=== PATIENT | female | born 1950 | race Caucasian/White ===

== ENCOUNTER → 2016-04-12 | Outpatient (CLI) | payer BC ==
[~2016-04-12] MED LIST: ASPEC81 PO; ASPI81TA28 PO; CALC500C70 PO; CIPR-255 PO; CLON0.5T3 PO; HYDR-5688 PO; MULT-506 PO; OMEG10007 PO; SERT-234 PO
--- NOTE | 2016-04-12 13:20 | DIAGNOSTIC IMAGING REPORT ---
FLUOROSCOPICALLY GUIDED RIGHT SHOULDER ARTHROGRAPHIC INJECTION PRE-CT CLINICAL HISTORY: Right shoulder pain. Possible rotator cuff tear. COMPARISON STUDY: Conventional radiographic study dated 11/01/2015 FLUOROSCOPY TIME: 24 seconds. A single fluoroscopic spot image was acquired. FINDINGS: A timeout was performed. The risks of the procedure and spleen the patient informed consent was obtained. Patient was prepped and draped in sterile fashion. The skin was anesthetized 1% lidocaine. Under fluoroscopic guidance, a 22-gauge spinal needle was introduced the joint capsule. Optiray 300 was instilled into the joint space. A fluoroscopic spot image was obtained to document intra-articular location of the contrast. There were no complications. The patient sensed the CT suite for further evaluation. IMPRESSION: Successful right shoulder arthrogram pre-CT. Electronically signed by: Coy Mojica M.D. 04/12/2016 1:18 PM Dictated Date/Time: 04/12/2016 1:16 PM
--- NOTE | 2016-04-12 13:24 | DIAGNOSTIC IMAGING REPORT ---
POST ARTHROGRAM CT SCAN OF THE RIGHT SHOULDER CT DOSE: 390.22 mGy.cm CLINICAL HISTORY: Right shoulder pain. Possible rotator cuff tear. TECHNIQUE: Helical images were acquired in the transverse plane. Sagittal and coronal reformatted imaging was acquired. COMPARISON STUDY: Conventional radiographic study dated 11/01/2015 FINDINGS: There is no evidence of bicipital tendon dislocation. There are moderate osteoarthritic changes with cartilaginous thinning. No acute fractures or dislocations are visualized. There is contrast within the subacromial space as well as within the substance of the supraspinous tendon. There is a full-thickness tear at the level of the tendinous footplate. There is no tendinous retraction. No labral tears are visualized. IMPRESSION: Full-thickness rotator cuff tear. No evidence of tendinous retraction. Electronically signed by: Coy Mojica M.D. 04/12/2016 1:22 PM Dictated Date/Time: 04/12/2016 1:18 PM
== END | disposition home or self-care (01) ==
LOC: C.CTS 11:50
PROVIDERS: ATTEND Orthopaedic Surgery
DX: M75.101 Unspecified rotator cuff tear or rupture of right shoulder, not specified as traumatic (principal)

== ENCOUNTER → 2016-07-25 | Outpatient (CLI) | payer BC ==
--- NOTE | 2016-07-25 21:06 | DIAGNOSTIC IMAGING REPORT ---
RIGHT ANKLE MIN 3 VIEWS ROUTINE CLINICAL HISTORY: Right foot and ankle pain following injury. COMPARISON: None FINDINGS: Alignment of the right ankle is anatomic. No acute fracture is identified. There is minimal plantar calcaneal spurring. There is mild soft tissue swelling. IMPRESSION: No acute fracture or dislocation of the right ankle. Electronically signed by: Wayne Leal M.D. 07/25/2016 9:04 PM Dictated Date/Time: 07/25/2016 9:03 PM
--- NOTE | 2016-07-25 21:07 | DIAGNOSTIC IMAGING REPORT ---
RIGHT FOOT MIN 3 VIEWS ROUTINE CLINICAL HISTORY: Right foot and ankle pain following injury. COMPARISON: None FINDINGS: The tarsometatarsal joints are intact. There is mild hallux valgus deformity. No acute fracture is identified. Deformity of the proximal phalanx of the right fifth toe suggests an old fracture. There is minimal plantar calcaneal spurring. Minimal degenerative changes are noted within several articulations of the right foot. IMPRESSION: No acute fracture or dislocation of the right foot. Electronically signed by: Wayne Leal M.D. 07/25/2016 9:06 PM Dictated Date/Time: 07/25/2016 9:04 PM
== END | disposition home or self-care (01) ==
LOC: C.RAD 20:41
PROVIDERS: ATTEND Physician Assistant Surgical
DX: S99.921A Unspecified injury of right foot, initial encounter (principal); S99.911A Unspecified injury of right ankle, initial encounter; M79.671 Pain in right foot; X58.XXXA Exposure to other specified factors, initial encounter

== ENCOUNTER 2016-08-28 16:39 | Emergency (ER) | payer BC ==
[~2016-08-28] VITALS: Ht 167.6 cm; Wt 76.1 kg
[~2016-08-28 16:39] MED LIST changes: -ASPI81TA28 PO; -HYDR-5688 PO
[2016-08-28 16:47] VITALS: BP 118/74; TEMP 36.6; Ht 167.6 cm; Wt 76.1 kg
[2016-08-28] MEDS ORDERED: ASPI81TA28 PO (17:23)
--- NOTE | 2016-08-28 18:05 | DIAGNOSTIC IMAGING REPORT ---
RIGHT PELVIS/UNILATERAL HIP 2-3VIEWS CLINICAL HISTORY: Fall, right hip pain Right COMPARISON: None. DISCUSSION: The bones and joint spaces appear intact. There is no evidence of fracture, dislocation or bony disease. There is no evidence for soft tissue swelling. IMPRESSION: Negative study. Minimal degenerative change. Electronically signed by: Luis Melendez M.D. 08/28/2016 6:03 PM Dictated Date/Time: 08/28/2016 6:02 PM
--- NOTE | 2016-08-28 18:07 | DIAGNOSTIC IMAGING REPORT ---
RIGHT RIBS UNILATERAL WITH PA CHEST CLINICAL HISTORY: Right rib pain s/p fall Right COMPARISON STUDY: None FINDINGS: Negative right ribs. Negative chest. IMPRESSION: No acute process. Electronically signed by: Luis Melendez M.D. 08/28/2016 6:05 PM Dictated Date/Time: 08/28/2016 6:04 PM
[2016-08-28] MEDS ORDERED: HYDR-5688 PO (18:24)
--- NOTE | 2016-08-28 18:26 | EMERGENCY ROOM VISIT NOTE ---
History First contact with patient: 17:12 Chief Complaint: FALL Stated Complaint: FELL, PAIN RT LOWER HIP/BUTT, RT RIB AREA, RT LEG History of Present Illness The patient is a 65 year old female who presents to the Emergency Room via private vehicle with complaints of "fall, pain right lower hip/buttock, right rib area, right leg". The patient states that this evening around 3 PM, she fell down one step at her neighbor's house. She states that she fell onto her right side/back. At this time she notes pain in the right lateral rib region as well as the right hip. She rates her pain as an 8/10. She states that when she takes a deep breath it hurts on the right side of the rib cage. She denies any left-sided pain. She also notes that the pain in the right hip is mostly in the buttock region. She states this is her fourth fall in the past few months. She denies any head injury, headache, loss of consciousness. Review of Systems A complete 6-point Review of Systems was discussed with the patient, with pertinent positives and negatives listed in the History of Present Illness. All remaining Review of Systems questions can be considered negative unless otherwise specified. 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, tumor, hearing loss Family History High blood pressure, cancer, Alzheimer's Social History Smoking Status: Never Smoker Marital Status: single Housing Status: lives alone Occupation Status: retired Current/Historical Medications Scheduled Aspirin (Aspirin Ec), 81 MG PO DAILY Calcium/Vitamin D (Os-Tremaine 500 Plus D), 1 TAB PO DAILY Fish Oil ([place]-3), 1 CAP PO BID Multivitamin (Multivitamin), 1 TAB PO DAILY Sertraline (Zoloft), 100 MG PO DAILY Scheduled PRN Hydrocodone/Acetaminophen 5MG/325MG (Carmen 5MG/325MG), 1-2 TABLET PO Q6 PRN for Pain Allergies Coded Allergies: Codeine (Unverified Allergy, Mild, 08/28/16) Morphine (Verified Allergy, Unknown, GET REALLY SICK, 08/28/16) Physical Exam Vital Signs Date Time Temp Pulse Resp B/P (MAP) Pulse Ox O2 Delivery O2 Flow Rate FiO2 08/28/16 18:45 88 18 97 08/28/16 16:47 36.6 70 18 118/74 94 Room Air Physical Exam VITAL SIGNS - Vital signs and nursing notes were reviewed. Patient is afebrile , normotensive, non-tachycardic and is saturating on room air 94%. GENERAL -65-year-old female appearing her stated age who is in no acute distress. Communicates well with provider and answers questions appropriately. SKIN - Without rashes. The skin is intact. HEAD - NC/AT. EYES - PERRL with EOMI bilaterally. Sclera anicteric. Palpebral conjunctiva pink and moist with no injection noted. EARS - No deformities of external structures noted on gross examination bilaterally. NECK - Neck with FROM. No C-spine tenderness. Supple to palpation. No thoracic or lumbar tenderness. LUNGS - Chest wall symmetric without accessory muscle use, intercostals retractions, or central cyanosis. Normal vesicular breath sounds CTA B/L. No wheezes, rales, or rhonchi appreciated. CARDIAC - RRR with S1/S2. No murmur, rubs, or gallops appreciated. ABDOMEN - Abdominal contour without pulsations or visible masses. BS normoactive all four quadrants. No tenderness, palpable masses, hepatosplenomegaly, or ascites noted. MUSCULOSKEKETAL: There is tenderness to palpation overlying the right lateral rib cage, worse with inspiration. There is also tenderness to palpation overlying the right gluteal region. No true hip tenderness. Full range of motion noted to the extremities. EXTREMITIES - No clubbing or peripheral cyanosis. No pretibial edema present.+5/ 5 strength noted in UE/LE bilaterally. NEUROLOGIC - Cranial nerves II through XII grossly intact. Sensory intact to light touch throughout. PSYCH - A&O Pt is very pleasant and interacts well with examiner. Medical Decision & Procedures ER Provider Diagnostic Interpretation: RIGHT PELVIS/UNILATERAL HIP 2-3VIEWS CLINICAL HISTORY: Fall, right hip pain Right COMPARISON: None. DISCUSSION: The bones and joint spaces appear intact. There is no evidence of fracture, dislocation or bony disease. There is no evidence for soft tissue swelling. IMPRESSION: Negative study. Minimal degenerative change. Electronically signed by: Luis Melendez M.D. 08/28/2016 6:03 PM Dictated Date/Time: 08/28/2016 6:02 PM RIGHT RIBS UNILATERAL WITH PA CHEST CLINICAL HISTORY: Right rib pain s/p fall Right COMPARISON STUDY: None FINDINGS: Negative right ribs. Negative chest. IMPRESSION: No acute process. Electronically signed by: Luis Melendez M.D. 08/28/2016 6:05 PM Dictated Date/Time: 08/28/2016 6:04 PM Medical Decision Patient was seen and evaluated as above. She appears to present to us today status post mechanical fall. She has had a history of falls over the past few months, and he called her family doctor today to schedule follow-up regarding today's injury. They informed her that they could not see her until Friday, but director to the emergency Department for imaging and note they will follow up her recent falls on Friday. This sounds reasonable. Radiographs were obtained with results as above. No acute fracture. I suspect the patient has bruised ribs on the right side, as well as a right gluteal region. 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 No evidence of stroke, TIA or emergent process at this time. I discussed the workup such as a head CT at this time, however it sounds as though her follow-up with her family doctor on Friday will encompass her recent fall and etiology. I believe this is reasonable at this time to allow her to be discharged with close follow-up with the family doctor. She'll be given a short term supply of pain medication. This was chosen based upon pain medication she had received in the past. This was verified prior to prescribing this to the patient by verbally discussed the medication she be prescribed. She was given an incentive spirometer to help prevent pneumonia. She is to follow-up with family doctor on Friday. She was educated upon worrisome symptoms which to return, had questions prior to discharge, and was discharged home. In the evaluation and treatment of this patient, the following differential diagnoses were considered: Hip Fracture, Hip Dislocation, Greater Trochanteric Bursitis, Musculoskeletal Pain, Lumbar Radiculopathy, TIA, stroke, rib fracture , contusion, among others. [place] Drug Monitoring Program Search Results: patient reviewed within database, no issues identified Impression Primary Impression: Fall Additional Impression: Contusion of multiple sites Departure Information Dispostion Home / Self-Care Condition GOOD Prescriptions Hydrocodone/Acetaminophen 5MG/325MG (Carmen 5MG/325MG) Tab 1-2 TABLET PO Q6 Y for Pain, #15 TAB For Initial Treatment Prov: Pako ArechigaLORENZO 08/28/16 Referrals Luis Dc M.D. (PCP) Patient Instructions My [facility] Additional Instructions You have been treated in the Emergency Department for Rib pain and hip pain. You have been prescribed NORCO to be used for pain control. This is a narcotic medication. You cannot drive or consume alcohol while on this medicine. This medicine should only be used for pain that cannot be controlled with over-the- counter pain medicines. PLEASE DO NOT TAKE WITH TYLENOL IT ALREADY CONTAINS THIS MEDICATION. For pain control, you can use the following ahsq-jno-kmkqlgz medicines (if >12 yo): -Regular strength (325mg/tab) Tylenol (acetaminophen) 2 tabs every 4-6 hours as needed. Do not exceed 12 tablets in a 24 hour period. Avoid taking more than 3 grams (3000 mg) of Tylenol per day. This includes any other sources of acetaminophen you may take on a regular basis. - Regular strength (200 mg/tab) Advil (ibuprofen) 1-2 tabs every 4-6 hours as needed. Do not exceed a dose of 3200 mg per day. If this is an acute injury, ice can be applied to the area of pain for the first 3 days to help decrease pain and inflammation. After the first 3 days, a heating pad can be used over the area for continued soothing relief. To minimize your discomfort, you can hug a pillow while coughing or sneezing. Additionally, you should continue to force yourself to take nice, deep breaths. Full expansion of the lungs is necessary to prevent the accumulation of fluid in the lung tissue and development of pneumonia. You should schedule a follow-up appointment in 2-3 days with your Primary Care Provider for further evaluation and treatment of your back pain. Please use the Incentive Spirometer several times per hour while awake to help prevent the development of pneumonia. Return to the Emergency Department if your current symptoms worsen despite treatment course outlined above, or if you develop any of the following symptoms : intractable pain despite aforementioned treatment course, development of a wet cough, bloody cough, fever, chills, or increased shortness of breath. Please return to the emergency department with any new/concerning symptoms. Problem Qualifiers
[2016-08-28 18:45] VITALS: PULSE 88; O2SAT 97
== END 2016-08-28 18:47 | disposition home or self-care (01) ==
LOC: C.EDB 16:40 → C.EDD 18:47
DX: T14.8 Other injury of unspecified body region (principal); W10.9XXA Fall (on) (from) unspecified stairs and steps, initial encounter; Y92.89 Other specified places as the place of occurrence of the external cause; Z82.49 Family history of ischemic heart disease and other diseases of the circulatory system; Z80.9 Family history of malignant neoplasm, unspecified; Z79.82 Long term (current) use of aspirin; Z79.899 Other long term (current) drug therapy

== ENCOUNTER → 2016-10-16 | Outpatient (CLI) | payer OTHER ==
[~2016-10-16] MED LIST changes: -ASPEC81 PO; +ASPI81TA28 PO; -CIPR-255 PO; -CLON0.5T3 PO; +HYDR-5688 PO
--- NOTE | 2016-10-16 13:42 | MAMMOGRAPHY REPORT ---
BILATERAL DIGITAL SCREENING MAMMOGRAM TOMOSYNTHESIS WITH CAD: 10/16/2016 CLINICAL HISTORY: Routine screening. Patient has no complaints. TECHNIQUE: Breast tomosynthesis in addition to standard 2D mammography was performed. Current study was also evaluated with a Computer Aided Detection (CAD) system. COMPARISON: Comparison is made to exams dated: 10/11/2015 mammogram, 10/05/2014 mammogram, 09/29/2013 m ammogram, 09/23/2012 mammogram, 09/24/2011 ultrasound, and 09/24/2011 mammogram - [facility]. BREAST COMPOSITION: There are scattered areas of fibroglandular density in both breasts. FINDINGS: There is expected architectural distortion in the upper outer posterior left breast, at th e site of prior surgical excision of a phyllodes. There are stable benign rim and round microcalcifi cations in both breasts. No new suspicious mass, architectural distortion or cluster of microcalcific ations is seen. IMPRESSION: ACR BI-RADS CATEGORY 1: NEGATIVE There is no mammographic evidence of malignancy. A 1 year screening mammogram is recommended. The pa tient will receive written notification of the results. Approximately 10% of breast cancers are not detected with mammography. A negative mammographic report should not delay biopsy if a clinically suggestive mass is present. Corina Salgado M.D. ay/:10/16/2016 10:42:47 Supervisor [employer]: Jaqueline FUNEZ)(Kb), [facility] letter sent: Normal 1/2 BI-RADS Code: ACR BI-RADS Category 1: Negative
== END | disposition home or self-care (01) ==
LOC: C.MAMM 09:50
PROVIDERS: ATTEND Nurse Practitioner Adult Health
DX: Z12.31 Encounter for screening mammogram for malignant neoplasm of breast (principal)

== ENCOUNTER 2022-03-04 09:56 | Observation (INO) ==
--- NOTE | 2022-01-24 15:37 | PAT Medication Instructions ---
Medication Instructions Date of Service January 24, 2022 Home Medications alendronate 70 mg tablet 70 mg PO Q7D sertraline 100 mg tablet 100 mg PO HS Bifidobacterium infantis 4 mg capsule (Align) 4 mg PO QAM calcium 600 mg capsule 600 mg PO QAM cholecalciferol (vitamin D3) 25 mcg (1,000 unit) tablet (Vitamin D3) 25 mcg PO QAM cyclosporine 0.05 % eye drops in a dropperette (Restasis) 1 drp ophthalmic (eye) Q12H zxefpqbc-hmj-vpox-FA-Ca carb-vit K 18 mg iron-400 mcg-500 mg tablet (One-A-Day Womens Formula) 1 tab PO QAM artificial tears with lanolin eye ointment 1 applic ophthalmic (eye) HS biotin 1,000 mcg chewable tablet 1,000 mcg PO QAM carboxymethylcellulose sodium 1 % eye liquid gel drops 2 drp ophthalmic (eye) BID PRN diphenhydramine 25 mg-acetaminophen 500 mg tablet (Tylenol PM Extra Strength) 1 tab PO HS PRN Continue as directed alendronate 70 mg tablet 70 mg PO Q7D (do NOT take day of surgery) STOP taking 2 weeks before surgery biotin 1,000 mcg chewable tablet 1,000 mcg PO QAM DO NOT take the morning of surgery restbnpq-tri-kfve-FA-Ca carb-vit K 18 mg iron-400 mcg-500 mg tablet (One-A-Day Womens Formula) 1 tab PO QAM Bifidobacterium infantis 4 mg capsule (Align) 4 mg PO QAM calcium 600 mg capsule 600 mg PO QAM cholecalciferol (vitamin D3) 25 mcg (1,000 unit) tablet (Vitamin D3) 25 mcg PO QAM Take morning of surgery With a small sip of water, OTHERWISE NOTHING TO EAT OR DRINK AFTER MIDNIGHT: carboxymethylcellulose sodium 1 % eye liquid gel drops 2 drp ophthalmic (eye) BID PRN(if needed) cyclosporine 0.05 % eye drops in a dropperette (Restasis) 1 drp ophthalmic (eye) Q12H Take evening before surgery diphenhydramine 25 mg-acetaminophen 500 mg tablet (Tylenol PM Extra Strength) 1 tab PO HS PRN(if needed) carboxymethylcellulose sodium 1 % eye liquid gel drops 2 drp ophthalmic (eye) BID PRN(if needed) artificial tears with lanolin eye ointment 1 applic ophthalmic (eye) HS cyclosporine 0.05 % eye drops in a dropperette (Restasis) 1 drp ophthalmic (eye) Q12H sertraline 100 mg tablet 100 mg PO HS Other Notes If you have any questions please call us at [phone] or [phone] or [phone] or [phone]
--- NOTE | 2022-01-28 10:00 | Anesthesiology Consultation ---
Date of Service January 28, 2022 Assessment & Plan (1) Encounter for pre-operative examination: - COVID screening: Per assessment on 01/28: No known COVID-19 positive contacts or current COVID-19 related symptoms. Travel screen negative. Patient vaccinated. At surgeon discretion if preop Covid testing being done. - Outpatient joint assessment: Pt currently scheduled for inpatient pathway. If surgeon requests review for outpatient joint pathway, patient is not recommended candidate for outpatient joint program from anesthesia standpoint. - S/P Right eye PE with IOL (06/06/21): LMA#4 at [facility]. No issues noted per post- op anesthesia progress note. - Deaf: Does not sign, reads lips. OR made aware. Spoke with Gamal with OR- she states they will have clear masks stocked/ready for patient's DOS per patient request. Chart Review Chart Review: Acceptable Risk for Surgery and Patient seen in Pre Admission Testing Teaching & Discussion Pre-Anesthesia Teaching/Discussion Notes: Instructed NPO after midnight before surgery,except medications with 15 cc of water. Medication instructions provided according to the PAT guidelines. History Surgery Operation Date: 03/04/22 07:00 Proposed Procedures p Left Reverse Total Shoulder Arthroplasty - Jorge Alfonso, Height/Weight Height: 5 ft 6 in Weight: 78 kg Allergies Allergy/AdvReac Type Severity Reaction Status Date / Time codeine Allergy Mild Nausea Verified 01/23/22 15:21 morphine Allergy Mild Nausea Verified 01/23/22 15:21 grass pollen Allergy Unknown Unknown Verified 01/23/22 15:21 pollen extracts Allergy Unknown Unknown Verified 01/23/22 15:21 ragweed pollen Allergy Unknown Unknown Verified 01/23/22 15:21 shellfish derived Allergy Unknown Unknown Verified 01/23/22 15:21 Medications Home Medications Medication Instructions Recorded Confirmed Last Taken alendronate 70 mg tablet 70 mg PO Q7D 01/06/19 01/23/22 06/03/21 sertraline 100 mg tablet 100 mg PO HS 01/06/19 01/23/22 06/05/21 Bifidobacterium infantis 4 mg 4 mg PO QAM 05/07/21 01/23/22 06/05/21 capsule (Align) calcium 600 mg capsule 600 mg PO QAM 05/07/21 01/23/22 06/05/21 cholecalciferol (vitamin D3) 25 25 mcg PO QAM 05/07/21 01/23/22 06/05/21 mcg (1,000 unit) tablet (Vitamin D3) cyclosporine 0.05 % eye drops in a 1 drp ophthalmic (eye) Q12H 05/07/21 01/23/22 06/06/21 dropperette (Restasis) wtzhbxtt-qpi-sbfw-FA-Ca carb-vit K 1 tab PO QAM 05/07/21 01/23/22 06/05/21 18 mg iron-400 mcg-500 mg tablet (One-A-Day Womens Formula) artificial tears with lanolin eye 1 applic ophthalmic (eye) HS 01/23/22 01/23/22 Unknown ointment biotin 1,000 mcg chewable tablet 1,000 mcg PO QAM 01/23/22 01/23/22 Unknown carboxymethylcellulose sodium 1 % 2 drp ophthalmic (eye) BID PRN Dry 01/23/22 01/23/22 Unknown eye liquid gel drops Eye(S) diphenhydramine 25 1 tab PO HS PRN Pain 01/23/22 01/23/22 Unknown mg-acetaminophen 500 mg tablet (Tylenol PM Extra Strength) Past Medical History Medical History Deafness Reads lips, does not sign 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 History of COVID-19 Dx 03/2020- rhinorrhea, resolved History of depression IBS (irritable bowel syndrome) Osteoporosis Exercise / Class Metabolic Activity III < 4 Walking/Shop/Light housework Past Family History Family History Mother Family history of reaction to anesthesia nausea/vomiting Other Cancer Hypertension No family history of bleeding disorder Stroke Past Surgical History Surgical History Family history of reaction to anesthesia Mother- "Got really sick" History of cochlear implant left History of colonoscopy History of ear surgery x2--on left ear--pt states that during one of her ear surgeries in 1987 they found a benign tumor on the brain and removed it at that time History of excision of pilonidal cyst History of left cataract surgery History of lumpectomy of left breast benign tumor removal History of surgery right pinky finger x2--no hardware History of surgery phyloid tumor excision 2009 History of wisdom tooth extraction Hx of right cataract extraction Right eye PE with IOL (06/06/21): LMA#4 at [facility]. No issues noted per post-op anesthesia progress note. Past Anesthesia History No Hx of Anesthesia Complications and No Family Hx of Anesthesia Complications (except mother- severe PONV) History of PONV No Hx of PONV and No Hx of Motion Sickness Social History Smoking Status: Never smoker Do You Dip or Chew Tobacco: No Hx Alcohol Use: Yes alcohol intake frequency: holidays/special occasions only Hx Substance Use: No substance use type: does not use Review of Systems Patient denies chest pain, shortness of breath, fever, chills, cough, wheezing, palpitations. Physical Exam Vital Signs VITALS BP 117/51 P 69 TEMP 98.6 SP02 96%RA RESP 18 PHYSICAL Full cervical extension range of motion. Full TMJ range of motion. TMD 3 finger breaths Mallampati Score 1 Dentition: intact Lungs: clear throughout to auscultation Cardiac: regular rate and rhythm, no murmurs noted Spine: normal Carotid arteries: negative bruit Extremities: no edema Lab Results Anesthesia Preop Results Results Anesthesia Widget: WBC 4.93 K/ul (4.8-10.8) 01/28/22 Hgb 15.4 g/dl (12.0-16.0) 01/28/22 Hct 45.9 % (34.1-44.9) H 01/28/22 Plt 255 K/uL (130-400) 01/28/22 Na 142 mmol/L (136-145) 01/28/22 K 4.1 mmol/L (3.5-5.1) 01/28/22 Cl 108 mmol/L (98-107) H 01/28/22 CO2 30 mmol/L (21-32) 01/28/22 BUN 21 mg/dl (6-23) 01/28/22 Creat 0.65 mg/dl (0.6-1.2) 01/28/22 Glucose Level 90 mg/dl (70-99(Fasting)) 01/28/22 PT 10.3 Seconds (9.0-12.0) 01/28/22 PTT 28.9 Seconds (21.0-31.0) 01/28/22 INR 1.0 (0.9-1.1) 01/28/22 Blood Type O Positive 01/28/22 Antibody Screen NEGATIVE 01/28/22 Testing Electrocardiogram Date: 05/03/21 Findings: + NSR @ (65) Chest X-Ray Date: 01/28/22 FINDINGS: No lines and tubes are seen. The cardiomediastinal silhouette is normal. The lungs are clear. No evidence of pleural effusion or pneumothorax. IMPRESSION: No acute chest disease. COVID-19 Risk Screen Screening Information COVID-19 Screen Date: 01/28/22 Exposure 21 Days Family/Household +COVID Last 21 Days: No Exposure 10 Days Any COVID Exposure Last 10 Days: No Symptoms Last 10 Days Experienced COVID Sx Last 10 Days: No + COVID 0-90 Days COVID + in Last 0-90 Days: No
--- NOTE | 2022-02-28 13:22 | History & Physical Report ---
Date of Service February 28, 2022 Assessment & Plan (1) Rotator cuff tear: We will proceed with a left reverse shoulder arthroplasty. Postoperatively she will be placed in a sling and kept overnight in the hospital for postoperative medical management. She plans to use [facility] upon discharge. History of Present Illness Chief Complaint: Rotator cuff tear left shoulder. Primary Care Provider: Luis Dc MD Urvashi is a pleasant 71-year-old female who has been dealing with chronic worsening left shoulder pain and weakness. A recent CT scan of the shoulder showed full-thickness retracted tears of the supraspinatus. There is also tearing of the infraspinatus. She is having trouble lifting her arm above chest level. Her symptoms have gotten worse over the years. We had tried multiple injections. She has a cochlear implant. So, she is unable to have an MRI. After failing extensive conservative treatment, she has elected to proceed with a left reverse shoulder arthroplasty. Allergies Allergy/AdvReac Type Severity Reaction Status Date / Time codeine Allergy Mild Nausea Verified 01/23/22 15:21 morphine Allergy Mild Nausea Verified 01/23/22 15:21 grass pollen Allergy Unknown Unknown Verified 01/23/22 15:21 pollen extracts Allergy Unknown Unknown Verified 01/23/22 15:21 ragweed pollen Allergy Unknown Unknown Verified 01/23/22 15:21 shellfish derived Allergy Unknown Unknown Verified 01/23/22 15:21 Home Medications Medication Instructions Recorded Confirmed Type alendronate 70 mg tablet 70 mg PO Q7D 01/06/19 01/23/22 History sertraline 100 mg tablet 100 mg PO HS 01/06/19 01/23/22 History Bifidobacterium infantis 4 mg 4 mg PO QAM 05/07/21 01/23/22 History capsule (Align) calcium 600 mg capsule 600 mg PO QAM 05/07/21 01/23/22 History cholecalciferol (vitamin D3) 25 25 mcg PO QAM 05/07/21 01/23/22 History mcg (1,000 unit) tablet (Vitamin D3) cyclosporine 0.05 % eye drops in a 1 drp ophthalmic (eye) Q12H 05/07/21 01/23/22 History dropperette (Restasis) [id number]-Ca carb-vit K 1 tab PO QAM 05/07/21 01/23/22 History 18 mg iron-400 mcg-500 mg tablet (One-A-Day Womens Formula) artificial tears with lanolin eye 1 applic ophthalmic (eye) HS 01/23/22 01/23/22 History ointment biotin 1,000 mcg chewable tablet 1,000 mcg PO QAM 01/23/22 01/23/22 History carboxymethylcellulose sodium 1 % 2 drp ophthalmic (eye) BID PRN Dry 01/23/22 01/23/22 History eye liquid gel drops Eye(S) diphenhydramine 25 1 tab PO HS PRN Pain 01/23/22 01/23/22 History mg-acetaminophen 500 mg tablet (Tylenol PM Extra Strength) Past Med/Surg History Medical History Deafness Reads lips, does not sign 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 History of COVID-19 Dx 03/2020- rhinorrhea, resolved History of depression IBS (irritable bowel syndrome) Osteoporosis Surgical History Family history of reaction to anesthesia Mother- "Got really sick" History of cochlear implant left History of colonoscopy History of ear surgery x2--on left ear--pt states that during one of her ear surgeries in 1987 they found a benign tumor on the brain and removed it at that time History of excision of pilonidal cyst History of left cataract surgery History of lumpectomy of left breast benign tumor removal History of surgery right pinky finger x2--no hardware History of surgery phyloid tumor excision 2009 History of wisdom tooth extraction Hx of right cataract extraction Right eye PE with IOL (06/06/21): LMA#4 at [facility]. No issues noted per post-op anesthesia progress note. Family History Mother Family history of reaction to anesthesia nausea/vomiting Other Cancer Hypertension No family history of bleeding disorder Stroke Social History Smoking Status: Never smoker Second Hand Exposure: Yes (as a child); Hx Alcohol Use: Yes Hx Substance Use: No Preferred Language: Yi Communication Ability: Impaired Director Visual Required: No Beliefs That Will Affect Care: None Current Living Situation: Alone Feels Safe at Home: Yes Assistive Devices: Glasses and Other Review of Systems All systems reviewed & are unremarkable except as noted in HPI & below. Physical Exam On physical examination of the left shoulder, she has about 45 degrees of forward elevation 45 degrees of abduction. She has 4 out of 5 motion with the full can test and external rotation.. Constitutional WD/WN, vitals as above Eyes PERRL, conjunctivae normal, anicteric sclerae ENMT external ear and nose normal, oropharynx normal Neck trachea midline, no thyromegaly Respiratory normal respiratory effort, lungs clear to auscultation Cardiovascular RRR, no murmur, no edema Gastrointestinal (Abdomen) normal bowel sounds, soft, nontender, no hepatosplenomegaly Skin no rashes, warm and dry Psychiatric A+Ox3, euthymic affect Results & Data Results & Data Laboratory Results . Diagnostic Findings CT scan of the left shoulder shows a large chronic retracted rotator cuff tear of the supraspinatus and part of the infraspinatus. X-rays of the left shoulder show a little bit of superior migration of the humeral head of the glenoid and no significant arthritis.. PG Care Time/CCT Total # of Minutes Spent Total Time Spent with Patient: Total time spent is greater than 50% in coordination of care (as documented) at patient's floor/unit and/or counseling patient: Coding Level of Care Code None Diagnoses Rotator cuff tear M75.100
[~2022-03-04 09:56] MED LIST changes: +ACETAMINOPHEN 500 MG TAB PO SCH; -ASPI81TA28 PO; +BUPIVACAINE 0.5 % 5 MG/1 ML PF 10ML VIAL ONE; -CALC500C70 PO; +FAMOTIDINE 20 MG TAB PO SCH; +GABAPENTIN 300 MG CAP PO SCH; -HYDR-5688 PO; +Ketorolac (*for OR use only*) 30 MG, dexAMETHasone 4 MG, KETAMINE HCL (**OR use only) 1... INFIL SCH; +LR 15ML/HR IV SCH; +LR 60ML/HR IV SCH; -MULT-506 PO; -OMEG10007 PO; -SERT-234 PO; +TRANEXAMIC ACID 1,000 MG **IV Intra-op IV SCH; +TRANEXAMIC ACID 1,000 MG **IV Pre-op IV SCH; +ceFAZolin 2000MG 2,000 MG/15 ML SYR IV SCH; +dexAMETHasone 4 MG TAB PO SCH
--- NOTE | 2022-03-04 10:34 | History & Physical Bridge Note ---
Date of Service March 04, 2022 History & Physical Bridge Note I have examined the patient, reviewed the History & Physical and in the interval since the performance of the History & Physical I have noted the following changes of clinical significance: no changes noted
[2022-03-04] MEDS ORDERED: LIDOCAINE 2% MPF LOCAL 5 ML VIAL INFIL ONE (11:34)
[2022-03-04] MEDS ORDERED: MIDAZOLAM HCL 1 MG/ML 2ML VIAL ONE (11:34)
[2022-03-04] MEDS ORDERED: DEXAMETHASONE SOD INJ 4 MG/ML VIAL ONE (11:34)
[2022-03-04] MEDS ORDERED: fentaNYL citrate 100 MCG/2 ML VIAL ONE (11:34)
[2022-03-04] MEDS ORDERED: ONDANSETRON INJ 2 MG/ML 2 ML VIAL ONE (11:34)
[2022-03-04] MEDS ORDERED: PROPOFOL IV EMULSION 10 MG/ML 20 ML VIAL IV ONE (11:34)
[2022-03-04] MEDS ORDERED: ROCURONIUM BROMIDE 10 MG/ML 5 ML VIAL IV ONE (11:34)
[2022-03-04] MEDS ORDERED: fentaNYL citrate 100 MCG/2 ML VIAL IV PRN (12:24)
[2022-03-04] MEDS ORDERED: ATROPINE SULFATE 0.1 MG/ML 10ML SYR IV PRN (12:24)
[2022-03-04] MEDS ORDERED: ePHEDrine sulfate 50 MG/ML AMP IV PRN (12:24)
[2022-03-04] MEDS ORDERED: ONDANSETRON INJ 2 MG/ML 2 ML VIAL IV PRN ×2 (12:24→17:58)
[2022-03-04] MEDS ORDERED: ORTHO JOINT ANESTHETIC ONE (13:44)
[2022-03-04] MEDS ORDERED: PHENYLEPHRINE HCL 10 MG/ML VIAL ONE (13:56)
[2022-03-04] MEDS ORDERED: GLYCOPYRROLATE 0.2 MG/ML VIAL ONE (14:19)
[2022-03-04] MEDS ORDERED: NEOSTIGMINE METHYLSULFATE 1 MG/ML 10ML VIAL ONE (14:19)
[2022-03-04] MEDS ORDERED: SODIUM CHLORIDE 0.9% INJ 10 ML VIAL ONE (14:19)
[2022-03-04] MEDS ORDERED: ePHEDrine sulfate 50 MG/ML AMP ONE (14:19)
--- NOTE | 2022-03-04 14:27 | Operative Report ---
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 of the long head of the biceps tendon I identified the patient and participated in the time-out.: Yes Procedure Operation Date: 03/04/22 12:30 Actual Procedures p Left Reverse Total Shoulder Arthroplasty(Left) with open biceps tenodesis as a distinct and separate procedure (modifier 59)- Jorge Alfonso DO Surgeon Jorge Alfonso DO Curb Setter Helper Jorge Chen PA-C Estimated Blood Loss 250 Findings Consistent with Post-Op Diagnosis Specimens Left humeral head Description of Procedure A CPT code modifier 59: The long head of the biceps tendon was enlarged and inflamed consistent with tendinopathy. A tenodesis was opted. This was a separate and distinct portion of the procedure. For these reasons, a CPT code modifier 59 will be added to this case. Implants used: I used a [employer]omet Comprehensive reverse total shoulder arthroplasty system with a size 9 press fit micro humeral stem, a +6 offset humeral tray and a standard humeral bearing, a 25 mm medium augment baseplate with a 6.5 mm central screw and superior and inferior locking screws, and a size 36 mm eccentric glenosphere. Urvashi arrived at [facility] for the above procedure. She was seen in the preoperative holding area and the operative extremity was identified and signed. She was given a preoperative antibiotic, TXA, and an interscalene nerve block. She was taken back to the operating room, laid on table in supine position, and put under general anesthesia. She was then put into the beachchair position. The shoulder was then prepped and draped in sterile fashion. A timeout was done and the patient and the operative extremity was properly identified. A deltopectoral approach was used. Dissection was taken down through the fascia and the deltoid was retracted laterally and the conjoined tendon was retracted medially. The anterior shoulder was exposed. The biceps groove was opened up and the biceps tendon was examined extensively. The biceps tendon demonstrated enlargement and inflammatory changes consistent with longstanding inflammation in the context of osteoarthritis and cuff arthropathy. The long head of the biceps tendon was then tenodesed to the upper border of the pectoralis major. This was a separate and distinct portion of the procedure. The subscapularis was then directly released off the lesser tuberosity with a peel technique. The inferior capsule was released and the humeral head was dislocated. A canal finding reamer was sent down the center of the humeral canal. Sequential reaming up to a size 9 reamer was done. Off that reamer, a proximal humeral resection guide was placed. The proximal humerus was resected at 135 of inclination and 25 of retroversion. Osteophytes were then removed and the glenoid was exposed. Time was spent doing a complete capsular and labral relea se. The glenoid guide was then placed in the inferior aspect of the glenoid. A 3.2 mm Steinmann pin was then placed into the glenoid vault at 10 of inclination. The glenoid baseplate was then reamed. The final size 25 mm medium augment baseplate was then impacted in the place. A 6.5 mm central screw was then placed followed by superior and inferior locking screws. A 36 mm eccentric glenosphere was then impacted into place. Surrounding soft tissues were then injected with 100 cc an orthopedic pain control cocktail. The proximal humerus was then exposed. Sequential broaching of the humerus up to a size 9 broach was done. Off that broach a +6 offset humeral tray was trialed. The shoulder was then reduced, brought through a full range of motion, and felt to be stable. The shoulder was then dislocated and the broach was removed. The final size 9 micro press-fit humeral stem was then impacted into place. A standard humeral bearing was then snapped onto a +6 offset humeral tray. The humeral tray was then impacted onto the humeral stem. The shoulder was once again reduced, brought through a full range of motion, and felt to be stable. The subscapularis was significantly retracted and unable to be repaired. A dilute betadyne lavage was then done for 3 minutes. The joint was then irrigated with normal saline solution. Hemostasis was obtained. The interval was closed with 2-0 Vicryl suture. The skin was then closed with 2-0 Vicryl and drew. A Silverlon dressing was placed and the arm was rested in a regular arm sling. She was then extubated and transferred to a hospital bed. She taken to the postanesthesia care unit in stable condition. She tolerated the procedure well. Jorge Chen PA-C, was present for the entire procedure. He was critical for pat ient positioning, prepping, draping, retraction exposure, wound closure and application of sterile dressing. I attest to the content of the Intraoperative Record and any orders documented therein. Any exceptions are noted below.
[2022-03-04] MEDS ORDERED: ESMOLOL HCL INJ 10 MG/ML 10ML VIAL IV ONE (14:35)
--- NOTE | 2022-03-04 14:58 | Anesthesiology Progress Note ---
Date of Service March 04, 2022 Anesthesia Post Procedure Vital Signs Vital Signs: Temp Pulse Resp BP Pulse Ox O2 Del Method 03/04/22 10:35 36.7 C 67 20 136/84 98 Room Air Pain Intensity Left Shoulder: Pain Intensity: 6 Transfer of Care Handoff Completed per policy Notes Mental Status: alert / awake / arousable and participated in evaluation Patient Amnestic to Procedure: Yes Nausea / Vomiting: adequately controlled Pain: adequately controlled Airway Patency, RR, SpO2: stable & adequate BP & HR: stable & adequate Hydration State: stable & adequate Anesthetic Complications: no major complications apparent and Pt Satisfied with anesthetic care
--- NOTE | 2022-03-04 17:15 | XRay Report ---
XR shoulder LT min 2V routine CLINICAL HISTORY: Post shoulder surgery COMPARISON: Left shoulder CT arthrogram September 04, 2021. Left shoulder radiographs December 18, 2021. FINDINGS: Alignment of the reverse total left shoulder arthroplasty is anatomic. Note is made of a n ondisplaced periprosthetic fracture along the distal aspect of the humeral component. No additional f ractures are identified. There are skin drew. No unexpected radiopaque foreign bodies are present. Left basilar opacity favors atelectasis. IMPRESSION: 1. Status post reverse total left shoulder arthroplasty. Hardware intact. No unexpected radiopaque fo reign bodies. 2. Nondisplaced periprosthetic fracture along the distal aspect of the humeral component. This findin g will be called/faxed to the ordering provider at time of dictation. ACT 112: Negative or not required by law. Electronically signed by: Wayne Leal M.D. 03/04/2022 5:13 PM
[2022-03-04] MEDS ORDERED: NALOXONE HCL 0.4 MG/1 ML VIAL/CARP IV PRN (17:58)
[2022-03-04] MEDS ORDERED: METOCLOPRAMIDE HCL INJ 5 MG/ML 2 ML VIAL IV PRN (17:58)
[2022-03-04] MEDS ORDERED: MAGNESIUM HYDROXIDE SUSP 30 ML UDC PO PRN (17:58)
[2022-03-04] MEDS ORDERED: HYDROmorphone INJ 0.5 MG/0.5 ML SYR IV PRN (17:58)
[2022-03-04] MEDS ORDERED: bisacodyL 10 MG SUPP PR PRN (17:58)
[2022-03-04] MEDS ORDERED: oxyCODONE HCL IR 5 MG TAB (IMMEDIATE RELEASE) PO PRN (17:58)
[2022-03-04] MEDS: KETOROLAC TROMETHAMINE 15 MG/ML VIAL IV SCH (19:05)
[2022-03-04] MEDS: SODIUM CHLORIDE 0.9% 1000ML 1,000 ML IV SCH ×2 (19:06→22:04)
[2022-03-04] MEDS ORDERED: ARTIFICIAL TEARS OP OINT 3.5 GM TUBE OP SCH (21:00)
[2022-03-04] MEDS ORDERED: SERTRALINE HCL 100 MG TABLET PO SCH (21:00)
[2022-03-04] MEDS ORDERED: SENNA 8.6 MG TAB PO SCH (21:00)
[2022-03-04] MEDS: ceFAZolin 2000MG 2,000 MG/15 ML SYR IV SCH (22:05)
[2022-03-04] MEDS: ACETAMINOPHEN 500 MG TAB PO SCH (22:10)
[2022-03-04] MEDS: DOCUSATE SODIUM 100 MG CAP PO SCH (22:11)
[2022-03-05] MEDS: ORDER AWAITING ACTION: Cyclosporine [Restasis] 0.05 % Dropperette SCH ×2 (00:51→07:50)
[2022-03-05] MEDS: KETOROLAC TROMETHAMINE 15 MG/ML VIAL IV SCH ×3 (00:51→13:21)
[2022-03-05] MEDS: ceFAZolin 2000MG 2,000 MG/15 ML SYR IV SCH (03:55)
[2022-03-05] MEDS: ACETAMINOPHEN 500 MG TAB PO SCH ×2 (05:31→13:27)
--- NOTE | 2022-03-05 06:55 | Orthopedic Progress Note ---
Date of Service March 05, 2022 Assessment & Plan (1) Status post reverse total replacement of left shoulder: Overall she is doing fairly well. She is not any pain in the left shoulder. The nerve block is still in effect. She will be seen by physical therapy today for ambulation and range of motion exercises. She can be discharged home later today. Her sister will be coming to help her and she will have [facility] at her house. She will follow-up with orthopedics in 2 weeks. Su Landin was seen and examined at bedside this morning. Overall she is doing fairly well. She is not having any pain in the left shoulder. The nerve block is still in effect. She has no complaints.. Review of Systems All systems reviewed & are unremarkable except as noted in HPI & below. Physical Exam On physical examination of the left shoulder, the dressing is clean and dry. She is wearing her sling as instructed. The nerve block is still in effect and she has no motion of her hand or wrist.. Results & Data Results & Data Laboratory Results . Diagnostic Findings Postoperative x-rays of the left shoulder show the prosthesis to be in good alignment. There is a small crack at the tip of the humeral stem. It is a vertical crack it is nondisplaced and appears to be stable.. PG Care Time/CCT Total # of Minutes Spent Total Time Spent with Patient: Total time spent is greater than 50% in coordination of care (as documented) at patient's floor/unit and/or counseling patient: Coding Level of Care Code 43743 Post Operative Follow-Up Diagnoses Status post reverse total replacement of left shoulder Z96.612
--- NOTE | 2022-03-05 06:57 | Discharge Summary ---
Date of Service March 05, 2022 Admission HPI (Per Admitting) Urvashi is a pleasant 71-year-old female who has been dealing with chronic worsening left shoulder pain and weakness. A recent CT scan of the shoulder showed full-thickness retracted tears of the supraspinatus. There is also tearing of the infraspinatus. She is having trouble lifting her arm above chest level. Her symptoms have gotten worse over the years. We had tried multiple injections. She has a cochlear implant. So, she is unable to have an MRI. After failing extensive conservative treatment, she has elected to proceed with a left reverse shoulder arthroplasty. Admission Exam (Per Admitting) On physical examination of the left shoulder, she has about 45 degrees of forward elevation 45 degrees of abduction. She has 4 out of 5 motion with the full can test and external rotation.. Principal Diagnosis Same as "Discharge Diagnosis" noted below under Discharge Instructions. Discharge Exam On physical examination of the left shoulder, the dressing is clean and dry. She is wearing her sling as instructed. The nerve block is still in effect and she has no motion of her hand or wrist.. Discharge Data Procedures Performed Operation Date: 03/04/22 12:30 Actual Procedures p Left Reverse Total Shoulder Arthroplasty(Left) - Jorge Alfonso DO Ordered Studies 03/04/22 05:00 US - OR guided needle placemen Routine 03/04/22 13:45 US - OR guided needle placemen Routine Hospital Course (1) Status post reverse total replacement of left shoulder: On March 04, 2022 Urvashi arrived at [facility] and underwent a left reverse shoulder arthroplasty. Postoperatively she was placed in a sling and transferred to the general orthopedic floors. Her hospital course was uneventful. On postop day #1, her vital signs were stable and her pain was well controlled. She was able to participate well with physical therapy doing ambul ation and range of motion exercises. There is a small crack at the inferior portion of the humeral component. I spoke with the therapist and we will continue normal therapy but we will go a little bit film booker on the arm in the early postoperative period. She will follow-up with orthopedics in 2 weeks. PG Care Time/CCT Total # of Minutes Spent Total Time Spent with Patient: Total time spent is greater than 50% in coordination of care (as documented) at patient's floor/unit and/or counseling patient: Discharge Plan Discharge Items Patient Disposition: Home - Home Health Services Reason For Visit: Degenerative Joint Disease Left Shoulder Discharge Diagnosis: Left reverse shoulder replacement Activity: Per Instructions section Non-emergency contact: Surgeon Call non-emergency contact if: your wound has increased redness and your wound has increased drainage Follow-up/Referrals: Luis Dc MD [Primary Care Provider] - Diet: Regular Addtl Attending Provider Instructions: Activity and Therapy Recommendations: * If you are using [facility] then therapy will be provided at your home until they feel you have accomplished all of your goals. * If you are using [facility] then Physical Therapy will be provided until they feel you are ready to start Outpatient Physical Therapy. * If you are not using home therapy then Outpatient Physical Therapy should start about 3-5 days from your day of surgery. Therapy will last about 8-12 weeks * Wear your sling for 3 weeks, unless otherwise instructed. You may remove your sling to shower and to dress, but otherwise, you should be in your sling at all times, including while sleeping * The shoulder replacement is very stable and you can use your hand while in the sling * You were shown a series of exercises in the hospital. Do these exercises daily including the exercises you were shown in physical therapy. Medications: * Narcotic You will likely be sent home from the hospital with a prescription for the narcotic pain medication that worked best throughout your stay. * Other medications may be prescribed for specific circumstances. If you have any questions, please call the office at . * Resume previous home medications unless otherwise instructed Dressing Care: Leave the Silverlon dressing in place for 7 days. After 7 days you may remove the dressing. If the incision is not draining then you may leave the drew open to air. If there is a little bit of drainage or if the drew are getting stuck on your clothing then cover the incision with a dry dressing. The drew will be removed at your 2 week follow-up appointment. Showering: You may shower with the Silverlon dressing in place. Do not let the shower spray hit the dressing directly. Pat the Silverlon dressing dry. If the dressing becomes wet underneath, then simply remove the dressing. Keep the incision dry until you are 7 days out from the day of surgery. After 7 days you may remove the Silverlon dressing and shower with the drew exposed. Let soapy water run over the drew and pat them dry. Do not scrub or soak the incision. Things To Watch For: * Drainage from the incision site that occurs more than one week after your surgery. * Increased redness at the incision site. * Fever above 102 degrees Fahrenheit. * Unusual chest pain or shortness of breath. * Call [facility] at with any of the above problems Follow-Up Visit: Follow-up with Dr. Alfonso's PA (Jorge Chen) 2-3 weeks after your day of surgery. He will remove your drew and answer any questions. If you have any additional questions or concerns, Dr Alfonso is usually in the office at the same time and will be available An appointment was probably scheduled when you signed-up for surgery in the office. If you have any questions call More detailed instructions as well as Frequently Asked Questions were provided in a folder by our office when you signed-up for surgery. Please review these instructions when you get home. If you have any further questions or concerns, please feel free to call the office at [phone] Pending Studies at Discharge: No Stand-Alone Forms: My [facility] Medications and DC Order Prescriptions: New tramadol 50 mg tablet 50 mg PO Q6H PRN (Reason: pain) Qty: 30 0RF Continued alendronate [Fosamax] 70 mg tablet 70 mg PO Q7D Label Comments: takes on sundays sertraline 100 mg tablet 100 mg PO HS cyclosporine [Restasis] 0.05 % Dropperette 1 drp OPHTHALMIC (EYE) Q12H calcium 600 mg Capsule 600 mg PO QAM cholecalciferol (vitamin D3) [Vitamin D3] 25 mcg (1,000 unit) Tablet 25 mcg PO QAM Align 4 mg Capsule 4 mg PO QAM One-A-Day Womens Formula 18 mg iron-400 mcg-500 mg Tablet 1 tab PO QAM diphenhydramine-acetaminophen [Tylenol PM Extra Strength] 25-500 mg Tablet 1 tab PO HS PRN (Reason: Pain) carboxymethylcellulose sodium [Refresh Liquigel] 1 % Drops, Liquid Gel 2 drp OPHTHALMIC (EYE) BID PRN (Reason: Dry Eye(S)) Lacri-Lube S.O.P. Ointment 1 applic OPHTHALMIC (EYE) HS biotin 1,000 mcg Tablet,Chewable 1,000 mcg PO QAM Discharge Orders: Discharge Order (Routine); Ordered 03/05/22 Ordered By: Jorge Alfonso Admission Data Admit Date/Time: 03/04/22 14:41 Attending Provider: Jorge Alfonso Admit Provider: Jorge Alfnoso Primary Care Provider: Luis cD
[2022-03-05] MEDS ORDERED: dexAMETHasone 4 MG TAB PO SCH (08:00)
[2022-03-05] MEDS ORDERED: MULTIVITAMIN TAB PO SCH (09:00)
[2022-03-05] MEDS: DOCUSATE SODIUM 100 MG CAP PO SCH (10:31)
[2022-03-05] MEDS ORDERED: ONDANSETRON 4 MG OD TAB PO STA (13:16)
[2022-03-10] MEDS ORDERED: ALENDRONATE SODIUM 70 MG TAB PO SCH (09:00)
== END 2022-03-05 13:38 | disposition home health service (06) ==
LOC: ASU 09:56 → PACUINP 09:56 → 3W 17:53

== ENCOUNTER 2024-08-30 06:48 | Observation (INO) ==
--- NOTE | 2024-07-28 11:40 | PAT Medication Instructions ---
Medication Instructions Date of Service July 28, 2024 Home Medications alendronate 70 mg tablet (Fosamax) 70 mg PO WK sertraline 100 mg tablet 150 mg PO HS calcium 600 mg capsule 600 mg PO QAM cholecalciferol (vitamin D3) 25 mcg (1,000 unit) tablet (Vitamin D3) 25 mcg PO QAM cyclosporine 0.05 % eye drops in a dropperette (Restasis) 1 drp ophthalmic (eye) BID artificial tears with lanolin eye ointment 1 applic ophthalmic (eye) HS carboxymethylcellulose sodium 1 % eye liquid gel drops (Refresh Liquigel) 2 drp ophthalmic (eye) UD PRN Dry Eye(S) diphenhydramine 25 mg-acetaminophen 500 mg tablet (Tylenol PM Extra Strength) 1 tab PO UD PRN Pain/sleep amoxicillin 500 mg tablet 2,000 mg PO UD PRN pre dental MEDICATION INSTRUCTIONS: Continue as directed amoxicillin 500 mg tablet 2,000 mg PO UD PRN pre dental alendronate 70 mg tablet (Fosamax) 70 mg PO WK cyclosporine 0.05 % eye drops in a dropperette (Restasis) 1 drp ophthalmic (eye) BID artificial tears with lanolin eye ointment 1 applic ophthalmic (eye) HS carboxymethylcellulose sodium 1 % eye liquid gel drops (Refresh Liquigel) 2 drp ophthalmic (eye) UD PRN Dry Eye(S) DO NOT take the morning of surgery calcium 600 mg capsule 600 mg PO QAM cholecalciferol (vitamin D3) 25 mcg (1,000 unit) tablet (Vitamin D3) 25 mcg PO QAM Take evening before surgery sertraline 100 mg tablet 150 mg PO HS diphenhydramine 25 mg-acetaminophen 500 mg tablet (Tylenol PM Extra Strength) 1 tab PO UD PRN Pain/sleep Other Notes Remember: NOTHING TO EAT OR DRINK AFTER MIDNIGHT If you have any questions please call us at [phone] or [phone] or [phone] or [phone]
--- NOTE | 2024-08-03 12:38 | Anesthesiology Consultation ---
Date of Service August 03, 2024 Assessment & Plan (1) Encounter for pre-operative examination: - Outpatient joint assessment: Patient is currently scheduled for inpatient pathway. If re-evaluated and patient/surgeon requests outpatient pathway, patient is acceptable candidate for outpatient joint program from anesthesia standpoint pending surgeon's office assessment of pt motivation/support/completion of same day joint program preop requirements. Chart Review Chart Review: Acceptable Risk for Surgery and Patient seen in Pre Admission Testing Teaching & Discussion Pre-Anesthesia Teaching/Discussion Notes: Instructed NPO after midnight before surgery, except medications with 15 cc of water. Medication instructions provided according to the PAT guidelines. History Surgery Operation Date: 08/30/24 08:40 Proposed Procedures p Right Total Shoulder Arthroplasty Yessica - Jorge Alfonso, Height/Weight Height: 5 ft 6 in Weight: 79 kg Allergies Allergy/AdvReac Type Severity Reaction Status Date / Time codeine Allergy Unknown Nausea Verified 07/27/24 10:01 grass pollen Allergy Unknown hay fever Verified 07/27/24 10:01 symptoms morphine Allergy Unknown Nausea Verified 07/27/24 10:01 pollen extracts Allergy Unknown hayfever Verified 07/27/24 10:01 symptoms ragweed pollen Allergy Unknown hay fever Verified 07/27/24 10:01 symptoms shellfish derived Allergy Unknown dr said i Verified 07/27/24 10:01 was allergic, pt doesn't know further details ciprofloxacin AdvReac Unknown C.dif Verified 07/27/24 10:01 Medications Home Medications Medication Instructions Recorded Confirmed Last Taken alendronate 70 mg tablet (Fosamax) 70 mg PO WK 01/06/19 07/27/24 02/17/22 09:00 sertraline 100 mg tablet 150 mg PO HS 01/06/19 07/27/24 03/01/22 09:00 calcium 600 mg capsule 600 mg PO QAM 05/07/21 07/27/24 03/02/22 09:00 cholecalciferol (vitamin D3) 25 25 mcg PO QAM 05/07/21 07/27/24 03/02/22 09:00 mcg (1,000 unit) tablet (Vitamin D3) cyclosporine 0.05 % eye drops in a 1 drp ophthalmic (eye) BID 05/07/21 07/27/24 03/03/22 21:00 dropperette (Restasis) artificial tears with lanolin eye 1 applic ophthalmic (eye) HS 01/23/22 07/27/24 03/04/22 08:00 ointment carboxymethylcellulose sodium 1 % 2 drp ophthalmic (eye) UD PRN Dry 01/23/22 07/27/24 03/04/22 09:00 eye liquid gel drops (Refresh Eye(S) Liquigel) diphenhydramine 25 1 tab PO UD PRN Pain/sleep 01/23/22 07/27/24 03/03/22 22:00 mg-acetaminophen 500 mg tablet (Tylenol PM Extra Strength) amoxicillin 500 mg tablet 2,000 mg PO UD PRN pre dental 07/27/24 07/27/24 Unknown Past Medical History Medical History Deafness Reads lips, does not sign History of anxiety 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 Exercise / Class Metabolic Activity II 4-5 Yardwork/Stairs/Walk up hill (occasional shortness of breath with one flight of stairs over the past year with reduced physical activity, denies change or worsening; denies chest discomfort) Past Family History Family History Mother Family history of reaction to anesthesia nausea/vomiting Other Cancer Hypertension No family history of bleeding disorder Osteoporosis Stroke Past Surgical History Surgical History Family history of reaction to anesthesia Mother-nausea and vomiting History of cochlear implant left History of colonoscopy History of ear surgery x2 (left ear)- pt states that during one of her ear surgeries in 1987 they found a benign tumor on the brain and removed it at that time History of excision of pilonidal cyst History of left cataract surgery 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 No issues noted per post-op anesthesia progress note. Past Anesthesia History No Hx of Anesthesia Complications History of PONV No Hx of PONV and No Hx of Motion Sickness Social History Smoking Status: Never smoker Do You Dip or Chew Tobacco: No Hx Alcohol Use: No alcohol intake frequency: holidays/special occasions only Hx Substance Use: No substance use type: does not use Review of Systems Patient denies chest pain, snoring, witnessed apneas, reflux, fever, chills, cough, wheezing, or palpitations. Physical Exam Vital Signs Vitals BP 111/70 P 56 TEMP 98.5 SP02 94% on RA RESP 18 Physical Patient resting comfortably in chair in no acute distress, alert and oriented, responding appropriately throughout visit Full cervical extension range of motion without pain TMD 3.5 finger breadths Mallampati Score 3 Dentition: several crowns, two implants, denies chipped or loose teeth, caps, or bridges Lungs: normal respiratory effort. Good air movement, clear throughout to ausc ultation, no adventitious breath sounds Cardiac: regular rate and rhythm, no murmurs noted Carotid arteries: negative bruit bilat Lab Results Anesthesia Preop Results Results Anesthesia Widget: WBC 4.96 K/ul (4.8-10.8) 08/03/24 Hgb 14.9 g/dl (12.0-16.0) 08/03/24 Hct 44.8 % (37.0-47.0) 08/03/24 Plt 231 K/uL (130-400) 08/03/24 Na 139 mmol/L (136-145) 08/03/24 K 4.7 mmol/L (3.5-5.1) 08/03/24 Cl 106 mmol/L (98-107) 08/03/24 CO2 28 mmol/L (21-32) 08/03/24 BUN 28 mg/dl (6-23) H 08/03/24 Creat 0.61 mg/dl (0.6-1.2) 08/03/24 Glucose Level 96 mg/dl (70-99(Fasting)) 08/03/24 PT 10.2 Seconds (9.0-12.0) 08/03/24 PTT 30 Seconds (21-31) 08/03/24 INR 0.9 (0.9-1.1) 08/03/24 Blood Type O Positive 08/03/24 Antibody Screen NEGATIVE 08/03/24 Testing Electrocardiogram Date: 08/03/24 Sinus bradycardia, rate 53 bpm Chest X-Ray Date: 08/03/24 No acute cardiopulmonary findings.
[~2024-08-30 06:48] MED LIST changes: -ACETAMINOPHEN 500 MG TAB PO SCH; -FAMOTIDINE 20 MG TAB PO SCH; -GABAPENTIN 300 MG CAP PO SCH; -Ketorolac (*for OR use only*) 30 MG, dexAMETHasone 4 MG, KETAMINE HCL (**OR use only) 1... INFIL SCH; -LR 15ML/HR IV SCH; -LR 60ML/HR IV SCH; -TRANEXAMIC ACID 1,000 MG **IV Intra-op IV SCH; -TRANEXAMIC ACID 1,000 MG **IV Pre-op IV SCH; -ceFAZolin 2000MG 2,000 MG/15 ML SYR IV SCH; -dexAMETHasone 4 MG TAB PO SCH
[2024-08-30] MEDS: LR 15ML/HR IV SCH (06:59)
[2024-08-30] MEDS: LR 60ML/HR IV SCH (07:00)
[2024-08-30] MEDS: GABAPENTIN 300 MG CAP PO SCH (07:00)
[2024-08-30] MEDS: FAMOTIDINE 20 MG TAB PO SCH (07:00)
[2024-08-30] MEDS: dexAMETHasone**PF** 10 MG/ML VIAL IV SCH (07:00)
[2024-08-30] MEDS: ACETAMINOPHEN 500 MG TAB PO SCH ×2 (07:00→13:32)
[2024-08-30] MEDS ORDERED: fentaNYL citrate PF 100 MCG/2 ML VIAL ONE (07:34)
[2024-08-30] MEDS ORDERED: ONDANSETRON INJ 2 MG/ML 2 ML VIAL ONE (07:34)
[2024-08-30] MEDS ORDERED: LIDOCAINE 2% 2 ML VIAL/AMP(20MG/ML) INFIL ONE (07:34)
[2024-08-30] MEDS ORDERED: PROPOFOL IV EMULSION 10 MG/ML 20 ML VIAL IV ONE (07:34)
[2024-08-30] MEDS ORDERED: MIDAZOLAM HCL 1 MG/ML 2ML VIAL ONE (07:34)
[2024-08-30] MEDS ORDERED: ROCURONIUM BROMIDE 10 MG/ML 5 ML VIAL IV ONE (07:38)
[2024-08-30] MEDS ORDERED: ATROPINE SULFATE 0.1 MG/ML 10ML SYR IV PRN (08:10)
[2024-08-30] MEDS ORDERED: ePHEDrine sulfate 50 MG/ML AMP IV PRN (08:10)
[2024-08-30] MEDS ORDERED: ONDANSETRON INJ 2 MG/ML 2 ML VIAL IV PRN (08:10)
[2024-08-30] MEDS ORDERED: fentaNYL citrate PF 100 MCG/2 ML VIAL IV PRN (08:10)
--- NOTE | 2024-08-30 08:12 | History & Physical Bridge Note ---
Date of Service August 30, 2024 History & Physical Bridge Note I have examined the patient, reviewed the History & Physical and in the interval since the performance of the History & Physical I have noted the following changes of clinical significance: no changes noted
[2024-08-30] MEDS: TRANEXAMIC ACID 1,000 MG **IV Pre-op IV SCH (08:41)
[2024-08-30] MEDS: ceFAZolin 2000MG 2,000 MG/15 ML SYR IV SCH ×2 (09:07→16:46)
[2024-08-30] MEDS ORDERED: ePHEDrine sulfate 50 MG/5 ML SYR ONE (09:52)
[2024-08-30] MEDS: TRANEXAMIC ACID 1,000 MG **IV Intra-op IV SCH (09:58)
[2024-08-30] MEDS: ORTHO JOINT ANESTHETIC ONE (10:01)
--- NOTE | 2024-08-30 10:02 | Operative Report ---
PG Post Operative Report Pre & Post Diagnosis Operation Date: 08/30/24 08:40 Pre-Op Diagnosis: Rotator cuff Arthropathy of Right Shoulder with tendinopathy long head of the biceps tendon Post-Op Diagnosis: Rotator cuff Arthropathy of Right Shoulder with tendinopathy long head of the biceps tendon I identified the patient and participated in the time-out.: Yes Procedure Operation Date: 08/30/24 08:40 Actual Procedures p Right Reverse Total Shoulder Arthroplasty(Right) with open biceps tenodesis as a distinct and separate procedure (modifier 59)- Jorge Alfonso DO Surgeon Jorge Alfonso DO Crane Operator Heather Chris PA-C Estimated Blood Loss 150 Findings Consistent with Post-Op Diagnosis Specimens Right humeral head Description of Procedure A CPT code modifier 59: The long head of the biceps tendon was enlarged and inflamed consistent with tendinopathy. A tenodesis was opted. This was a separate and distinct portion of the procedure. For these reasons, a CPT code modifier 59 will be added to this case. Implants used: I used a [employer] Comprehensive reverse total shoulder arthroplasty system with a size 8 press fit micro humeral stem, a +6 offset humeral tray and a +3 retentive humeral bearing, a 25 mm small augment baseplate with a 6.5 mm central screw and superior and inferior locking screws, and a size 36 mm eccentric glenosphere. Urvashi arrived at [facility] for the above procedure. She was seen in the preoperative holding area and the operative extremity was identified and signed. She was given a preoperative antibiotic, TXA, and an interscalene nerve block. She was taken back to the operating room, laid on table in supine position, and put under general anesthesia. She was then put into the beachchair position. The shoulder was then prepped and draped in sterile fashion. A timeout was done and the patient and the operative extremity was properly identified. A deltopectoral approach was used. Dissection was taken down through the fascia and the deltoid was retracted laterally and the conjoined tendon was retracted medially. The anterior shoulder was exposed. The biceps groove was opened up and the biceps tendon was examined extensively. The biceps tendon demonstrated enlargement and inflammatory changes consistent with longstanding inflammation in the context of osteoarthritis and cuff arthropathy. The long head of the biceps tendon was then tenodesed to the upper border of the pectoralis major. This was a separate and distinct portion of the procedure. The subscapularis was then directly released off the lesser tuberosity with a peel technique. The inferior capsule was released and the humeral head was dislocated. A canal finding reamer was sent down the center of the humeral canal. Sequential reaming up to a size 8 reamer was done. Off that reamer, a proximal humeral resection guide was placed. The proximal humerus was resected at 135 of inclination and 25 of retroversion. Osteophytes were then removed and the glenoid was exposed. Time was spent doing a complete capsular and labral r elease. The glenoid guide was then placed in the inferior aspect of the glenoid. A 3.2 mm Steinmann pin was then placed into the glenoid vault at 10 of inclination. The glenoid baseplate was then reamed. The final size 25 mm small augment baseplate was then impacted in the place. A 6.5 mm central screw was then placed followed by superior and inferior locking screws. A 36 mm eccentric glenosphere was then impacted into place. Surrounding soft tissues were then injected with 100 cc an orthopedic pain control cocktail. The proximal humerus was then exposed. Sequential broaching of the humerus up to a size 8 broach was done. Off that broach a +6 offset and +3 retentive humeral tray was trialed. The shoulder was then reduced, brought through a full range of motion, and felt to be stable. The shoulder was then dislocated and the broach was removed. The final size 8 micro press-fit humeral stem was then impacted into place. A +3 retentive humeral bearing was then snapped onto a +6 offset humeral tray. The humeral tray was then impacted onto the humeral stem. The shoulder was once again reduced, brought through a full range of motion, and felt to be stable. The subscapularis was poor quality and unable to be repaired. A dilute betadyne lavage was then done for 3 minutes. The joint was then irrigated with normal saline solution. Hemostasis was obtained. The interval was closed with 2-0 Vicryl suture. The skin was then closed with 2-0 Vicryl and drew. A Silverlon dressing was placed and the arm was rested in a regular arm sling. She was then extubated and transferred to a hospital bed. She taken to the postanesthesia care unit in stable condition. She tolerated the procedure well. Heather Chris PA-C, was present for the entire procedure. He was critical for patient positioning, prepping, draping, retraction exposure, wound closure and application of sterile dressing. I attest to the content of the Intraoperative Record and any orders documented therein. Any exceptions are noted below.
[2024-08-30] MEDS ORDERED: SUGAMMADEX SODIUM 200 MG/2 ML VIAL IV ONE (10:05)
[2024-08-30] MEDS: ROPIV 0.5% 246mg, Ketorolac 30mg, EPINEPHrine 0.5mg in NSS INFIL SCH (10:06)
--- NOTE | 2024-08-30 10:59 | XRay Report ---
XR shoulder RT min 2V routine CLINICAL HISTORY: Post shoulder surgery COMPARISON: 11/01/2015 FINDINGS: Right shoulder prosthesis shows no hardware complication. There is expected soft tissue ga s. IMPRESSION: Unremarkable postoperative exam. ACT 112: Negative or not required by law. Electronically signed by: Bernardo Montesinos M.D. 08/30/2024 10:58 AM
[2024-08-30] MEDS ORDERED: MAGNESIUM HYDROXIDE SUSP 30 ML UDC PO PRN (11:38)
[2024-08-30] MEDS ORDERED: diphenhydrAMINE Capsule 25 MG CAP PO PRN (11:38)
[2024-08-30] MEDS ORDERED: NALOXONE HCL 0.4 MG/1 ML VIAL/CARP IV PRN (11:38)
[2024-08-30] MEDS ORDERED: bisacodyL 10 MG SUPP PR PRN (11:38)
[2024-08-30] MEDS ORDERED: HYDROmorphone INJ 0.5 MG/0.5 ML SYR IV PRN (11:38)
[2024-08-30] MEDS ORDERED: oxyCODONE HCL IR 5 MG TAB (IMMEDIATE RELEASE) PO PRN (11:38)
[2024-08-30] MEDS: BUPIVACAINE LIPOSOME 1.3% 133 MG/10 ML VIAL ONE (11:39)
[2024-08-30] MEDS: SODIUM CHLORIDE 0.9% 1,000 ML IV SCH (12:00)
[2024-08-30] MEDS: KETOROLAC TROMETHAMINE 15 MG/ML VIAL IV SCH (12:00)
--- NOTE | 2024-08-30 12:27 | Anesthesiology Progress Note ---
Date of Service August 30, 2024 Anesthesia Post Procedure Vital Signs Vital Signs: Temp Pulse Pulse Resp BP BP Pulse Ox 08/30/24 12:18 97.5 F L 74 16 114/72 95 08/30/24 11:42 97.5 F L 70 16 117/70 92 08/30/24 11:20 61 14 118/59 L 93 08/30/24 11:10 97.5 F L 68 18 124/64 96 08/30/24 11:00 61 13 123/53 L 95 08/30/24 10:50 68 16 126/59 L 95 08/30/24 10:40 69 20 135/64 96 08/30/24 10:30 74 18 125/68 96 08/30/24 10:27 96.8 F L 77 14 138/81 92 08/30/24 06:56 98.6 F 66 18 133/49 L 94 O2 Del Method O2 Flow Rate 08/30/24 12:18 Nasal Cannula 1 08/30/24 11:42 Room Air 08/30/24 11:20 Nasal Cannula 2 08/30/24 11:10 Nasal Cannula 2 08/30/24 11:00 Nasal Cannula 2 08/30/24 10:50 Nasal Cannula 2 08/30/24 10:40 Oxymask 2 08/30/24 10:30 Oxymask 6 08/30/24 10:27 Oxymask 6 08/30/24 06:56 Room Air Transfer of Care Handoff Completed per policy Notes Mental Status: alert / awake / arousable and participated in evaluation Patient Amnestic to Procedure: Yes Nausea / Vomiting: adequately controlled Pain: adequately controlled Airway Patency, RR, SpO2: stable & adequate BP & HR: stable & adequate Hydration State: stable & adequate Anesthetic Complications: no major complications apparent and Pt Satisfied with anesthetic care
[2024-08-30] MEDS: DOCUSATE SODIUM 100 MG CAP PO SCH (20:44)
[2024-08-30] MEDS: ASPIRIN 81 MG ECTAB PO SCH (20:44)
[2024-08-30] MEDS: SERTRALINE HCL 50 MG TABLET PO SCH (20:44)
[2024-08-30] MEDS: SENNA 8.6 MG TAB PO SCH (20:45)
[2024-08-31] MEDS: ONDANSETRON INJ 2 MG/ML 2 ML VIAL IV PRN (03:09)
[2024-08-31 03:13] VITALS: O2SAT 93
[2024-08-31 07:16] VITALS: BP 116/76; PULSE 58; RESP 18; TEMP 98.1
[2024-08-31] MEDS: METOCLOPRAMIDE HCL INJ 5 MG/ML 2 ML VIAL IV PRN (07:51)
--- NOTE | 2024-08-31 08:41 | Orthopedic Progress Note ---
Date of Service August 31, 2024 Assessment & Plan (1) Status post reverse total arthroplasty of right shoulder: * Continue Current Treatment * Disposition: home * Daily treatment: Physical Therapy/ Occupational Therapy per protocol * Weight bearing status: NWB RUE * Continue to monitor for ABLA * Pain control * DVT prophylaxis, ASA * Office/hospital f/u 2 weeks for progress check and staple/suture removal * Plan for discharge today pending PT/OT clearance Subjective .Active Problems: S/p right rTSA 73 y/o female s/p right reverse total shoulder arthroplasty. Doing well overall, pain managed and improved function. Denies fever/chills, chest pain/SOB, nausea/vomiting. Otherwise no complaints. Review of Systems All systems reviewed & are unremarkable except as noted in HPI & below. Physical Exam .Right shoulder surgical dressing CDI, not removed for exam. Otherwise no obvious deformity or overlying skin changes RUE. Diffuse TTP upper arm and shoulder region. Otherwise no specific tenderness of upper arm, elbow, forearm, wrist/hand. AROM shoulder not assessed. AROM elbow, wrist/hand intact. Sensation intact radial/median/ulnar nerve distributions. Brisk capillary refill. Results & Data Results & Data Laboratory Results . Diagnostic Findings . Shoulder X-Ray 08/30/24 10:29 XR shoulder RT min 2V routine CLINICAL HISTORY: Post shoulder surgery COMPARISON: 11/01/2015 FINDINGS: Right shoulder prosthesis shows no hardware complication. There is expected soft tissue gas. IMPRESSION: Unremarkable postoperative exam. ACT 112: Negative or not required by law. Electronically signed by: Bernardo Montesinos M.D. 08/30/2024 10:58 AM PG Care Time/CCT Total # of Minutes Spent Total Time Spent with Patient: Total time spent is greater than 50% in coordination of care (as documented) at patient's floor/unit and/or counseling patient: Coding Level of Care Code 40745 Post Operative Follow-Up Diagnoses Status post reverse total arthroplasty of right shoulder Z96.611
[2024-08-31] MEDS: dexAMETHasone 4 MG TAB PO SCH (08:59)
[2024-08-31] MEDS: MULTIVITAMIN TAB PO SCH (09:03)
== END 2024-08-31 12:20 | disposition home or self-care (01) ==
LOC: ASU 06:48 → 3E 06:48